=== PATIENT | female | born 1990 | race Caucasian/White ===

== ENCOUNTER 2017-09-05 03:20 | Emergency (ER) | payer MEDICAID ==
[2017-09-05] MEDS: SOD CHLORIDE 0.9% IV (04:34)
[2017-09-05] MEDS: LEVALBUTEROL (NEB) 1.25 MG/0.5 ML AMP INH (04:37)
[2017-09-05] MEDS: IPRATROPIUM (NEB) 0.5 MG/2.5 ML AMP NEB (04:37)
[2017-09-05 04:38] LABS: URINE BLOOD (Dip) POC Negative (NEGATIVE); URINE GLUCOSE (Dip) POC Negative (NEGATIVE); URINE KETONES (Dip) POC Negative (NEGATIVE); URINE LEUKOCYTE EST (Dip) POC Negative (NEGATIVE); URINE NITRITE (Dip) POC Negative (NEGATIVE); URINE TOTAL PROTEIN POC 1+ (NEGATIVE)
[2017-09-05 04:38] LABS: URINE PH (Dip) POC 6.5 (5.0-8.5)
[2017-09-05] MEDS: ACETAMINOPHEN 325 MG TAB PO (04:41)
[2017-09-05 04:48] LABS: ADD MAN DIFF? NO
[2017-09-05 04:49] LABS: WHITE BLOOD COUNT 7.6 10^3/ul (4.8-10.8)
[2017-09-05 04:49] LABS: BASOPHILS % 0.5 % (0.0-2.0); EOSINOPHILS # 0.2 10^3/ul (0.0-0.5); EOSINOPHILS % 3.1 % (0.0-7.0); HEMATOCRIT 35.6 % (37.0-47.0); HEMOGLOBIN 12.7 g/dl (12.0-16.0); LYMPHOCYTES # 1.6 10^3/ul (0.8-2.9); LYMPHOCYTES % 21.1 % (15.0-51.0); MEAN CORPUSCULAR HEMOGLOBIN 33.4 pg (29.0-33.0); MEAN CORPUSCULAR HGB CONC 35.7 g/dl (32.0-37.0); MEAN CORPUSCULAR VOLUME 93.7 fl (82.0-101.0); MEAN PLATELET VOLUME 9.6 fl (7.4-10.4); MONOCYTE # 0.7 10^3/ul (0.3-0.9); MONOCYTES % 9.2 % (0.0-11.0); NEUTROPHILS % 65.8 % (39.0-77.0); PLATELET COUNT 253 10^3/UL (140-415)
[2017-09-05 05:09] LABS: INR 1.03; PARTIAL THROMBOPLASTIN TIME 35.6 Sec (25.0-35.0); PROTIME 13.6 Sec (11.9-14.9); PT RATIO 1.1
[2017-09-05 05:10] LABS: ALANINE AMINOTRANSFERASE 18 IU/L (13-69); ALBUMIN 4.3 g/dl (3.3-4.9); ALBUMIN/GLOBULIN RATIO 1.13; ALKALINE PHOSPHATASE 83 IU/L (42-121); ANION GAP 23 (8-16); ASPARTATE AMINO TRANSFERASE 17 IU/L (15-46); BILIRUBIN,INDIRECT 0.9 mg/dl (0-1.1); BILIRUBIN,TOTAL 0.9 mg/dl (0.2-1.3); BLOOD UREA NITROGEN 8 mg/dl (7-20); CALCIUM 9.2 mg/dl (8.4-10.2); CARBON DIOXIDE 21 mmol/L (21-31); CHLORIDE 106 mmol/L (97-110); GLUCOSE 95 mg/dl (70-220); POTASSIUM 3.9 mmol/L (3.5-5.1); SODIUM 146 mmol/L (135-144); TOTAL PROTEIN 8.1 g/dl (6.1-8.1)
[2017-09-05 05:11] LABS: LACTIC ACID 0.9 mmol/L (0.5-2.0)
[2017-09-05] MEDS: LEVOFLOXACIN 750MG/D5W (PMX) 150 ML IVPB (05:16)
[2017-09-05] MEDS: KETOROLAC 15 MG INJ IV (05:16)
== END 2017-09-05 07:23 | disposition home or self-care (01) ==
LOC: E/R 03:20
DX: J18.9 Pneumonia, unspecified organism (principal); Z87.891 Personal history of nicotine dependence
CPT/HCPCS: 36415; 71045; 80053; 81003; 83605; 85025; 85610; 85730; 87040; 87086; 93005; 94664; 96374; 96375; 99285-25

== ENCOUNTER 2018-08-10 09:29 | Emergency (ER) | payer OTHER, MEDICAID ==
[2018-08-10] MEDS: LIDOCAINE 1%/EPI 30 ML INJ INJ (12:14)
[2018-08-10] MEDS: LIDOCAINE 1%/EPI (1:100,000) (MDV) 20 ML INJ (12:15)
== END 2018-08-10 12:21 | disposition home or self-care (01) ==
LOC: FTE 09:29
DX: K61.0 Anal abscess (principal); R10.2 Pelvic and perineal pain; Z87.891 Personal history of nicotine dependence
CPT/HCPCS: 46050; 99283-25

== ENCOUNTER 2019-03-08 11:41 | Emergency (ER) | payer OTHER ==
[2019-03-08] MEDS: IBUPROFEN 600 MG TAB PO (13:33)
[2019-03-08] MEDS: ONDANSETRON (ODT) 4 MG TAB ODT (13:33)
[2019-03-08 14:42] LABS: ADD MAN DIFF? NO
[2019-03-08 14:45] LABS: WHITE BLOOD COUNT 8.3 10^3/ul (4.8-10.8)
[2019-03-08 14:45] LABS: BASOPHILS % 0.2 % (0.0-2.0); EOSINOPHILS % 0.5 % (0.0-7.0); HEMATOCRIT 41.9 % (37.0-47.0); HEMOGLOBIN 14.4 g/dl (12.0-16.0); LYMPHOCYTES # 1.1 10^3/ul (0.8-2.9); LYMPHOCYTES % 13.6 % (15.0-51.0); MEAN CORPUSCULAR HGB CONC 34.4 g/dl (32.0-37.0); MEAN CORPUSCULAR VOLUME 96.1 fl (82.0-101.0); MONOCYTE # 0.6 10^3/ul (0.3-0.9); MONOCYTES % 6.9 % (0.0-11.0); NEUTROPHIL # 6.5 10^3/ul (1.6-7.5); NEUTROPHILS % 78.6 % (39.0-77.0); PLATELET COUNT 215 10^3/UL (140-415); RED BLOOD COUNT 4.36 10^6/ul (4.20-5.40); RED CELL DISTRIBUTION WIDTH 10.9 % (11.5-14.5)
[2019-03-08 15:01] LABS: ANION GAP 11 (5-13); BLOOD UREA NITROGEN 6 mg/dl (7-20); CALCIUM 9.3 mg/dl (8.4-10.2); CARBON DIOXIDE 27 mmol/L (21-31); CHLORIDE 101 mmol/L (97-110); CREATININE 0.64 mg/dl (0.44-1.00); Estimated GFR > 60 mL/min (>60); GLUCOSE 93 mg/dl (70-220); POTASSIUM 3.6 mmol/L (3.5-5.1); SODIUM 139 mmol/L (135-144)
[2019-03-08] MEDS: SOD CHLORIDE 0.9% 100 ML (15:12)
[2019-03-08] MEDS: IOHEXOL 300MG/ML 150 ML BTL (15:12)
== END 2019-03-08 17:14 | disposition home or self-care (01) ==
LOC: FTE 11:41
DX: J18.9 Pneumonia, unspecified organism (principal); H66.92 Otitis media, unspecified, left ear
CPT/HCPCS: 71045; 71260; 80048; 81025; 85025; 93005; 99285-25